=== PATIENT | male | born 1990 | race Two or more races ===

== ENCOUNTER 2018-04-03 21:01 | Emergency (ER) | payer SELFPAY ==
[~2018-04-03] VITALS: Ht 177.8 cm; Wt 93.0 kg
[2018-04-03 21:15] VITALS: BP 136/56
== END 2018-04-03 22:11 | disposition home or self-care (01) ==
LOC: ER 21:01
DX: S20.219A Contusion of unspecified front wall of thorax, initial encounter (principal); V28.0XXA Motorcycle driver injured in noncollision transport accident in nontraffic accident, initial encounter; Y93.55 Activity, bike riding; Y99.8 Other external cause status; Y92.64 Mine or pit as the place of occurrence of the external cause
CPT/HCPCS: 71045